=== PATIENT | female | born 1985 | race Caucasian/White ===

== ENCOUNTER 2018-06-25 14:28 | Emergency (ER) | END 2018-06-25 17:20 | disposition home or self-care (01) ==

== ENCOUNTER 2019-07-14 18:31 | Emergency (ER) | payer OTHER ==
[~2019-07-14] VITALS: Ht 157.5 cm; Wt 79.6 kg
[~2019-07-14 18:31] MED LIST: ACET500C5 PO
[2019-07-14 18:32] VITALS: BP 120/74; PULSE 86; RESP 18; Ht 157.5 cm; Wt 79.6 kg
[2019-07-14] MEDS ORDERED: ACETAMINOPHEN 325 MG TAB PO ONE (20:00)
== END 2019-07-14 23:07 | disposition left against medical advice (07) ==
LOC: E/R 18:31 → FTE 23:07
DX: O20.9 Hemorrhage in early pregnancy, unspecified (principal); Z3A.08 8 weeks gestation of pregnancy
CPT/HCPCS: 36415; 76705; 76801; 76817; 80053; 81001; 81025; 84702; 85025; 86900; 86901; Z7502; Z7610